=== PATIENT | male | born 1960 | race Caucasian/White ===

== ENCOUNTER 2016-11-02 19:49 | Inpatient (IN) | payer MEDICAID, OTHER ==
[~2016-11-02] VITALS: Ht 180.3 cm; Wt 85.0 kg
[2016-11-02] MEDS ORDERED: SOD CHLORIDE 0.9% 1,000 ML IV STA (20:22)
[2016-11-02] MEDS ORDERED: morphine 4 MG/ML VIAL IV STA (20:22)
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
--- NOTE | 2016-11-02 21:25 | RADRPT ---
PROCEDURE: CT Brain without. CLINICAL INDICATION: Trauma TECHNIQUE: A CT of the brain was performed utilizing axial sections from the skull base through th e vertex without contrast. The scan was reviewed in soft tissue brain and high frequency resolution bone algorithm windows. Images were reviewed on a high-resolution PACS workstation. CTDI 44 mGy, DLP 720 mGy-cm One or more of the following dose reduction techniques were used: Automated exposure control Adjustment of the mA and/or kV according to patient size. Use of iterative reconstruction technique. COMPARISON: None available FINDINGS: There is mild sulcal and ventricular prominence. There is no acute intracranial hemorrhage, an acut e large territorial infarct, an abnormal extra-axial fluid collection, or a space-occupying intracra nial mass. There is no mass effect or midline shift. The gregory-white matter differentiation is inta ct. The posterior fossa, brainstem, and basal cisterns are unremarkable. The subcutaneous soft tissues and scalp are unremarkable. There are no acute fractures. The visual ized mastoid air cells and paranasal sinuses are clear. The bilateral globes and orbits are unremar kable. RPTAT: ZZ IMPRESSION: 1. No acute intracranial abnormality. 2. Mild cerebral atrophy. .Daniela Stone MD, Date Time Electronically viewed and signed by .Daniela Stone MD, on 11/02/2016 21:24 .T/
[2016-11-02 21:30] LABS: ABNORMAL IP MESSAGE 1; BASOPHILS % 0.4 % (0.0-2.0); EOSINOPHILS % 0.3 % (0.0-7.0); HEMATOCRIT 27.4 % (42.0-52.0); HEMOGLOBIN 7.4 g/dl (14.0-18.0); LYMPHOCYTES # 0.7 10^3/ul (0.8-2.9); LYMPHOCYTES % 9.6 % (15.0-51.0); MEAN CORPUSCULAR HEMOGLOBIN 16.2 pg (29.0-33.0); MEAN CORPUSCULAR VOLUME 59.8 fl (82.0-101.0); MONOCYTE # 0.4 10^3/ul (0.3-0.9); MONOCYTES % 5.8 % (0.0-11.0); NEUTROPHIL # 5.8 10^3/ul (1.6-7.5); NEUTROPHILS % 83.6 % (39.0-77.0); PLATELET COUNT 234 10^3/UL (140-415); POSITIVE DIFF @See below; RED BLOOD COUNT 4.58 10^6/ul (4.70-6.10); RED CELL DISTRIBUTION WIDTH 21.1 % (11.5-14.5); WHITE BLOOD COUNT 6.9 10^3/ul (4.8-10.8)
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
[2016-11-02 21:41] LABS: INR 1.13; PROTIME 14.5 Sec (12.2-14.2); PT RATIO 1.1
[2016-11-02 21:42] LABS: PARTIAL THROMBOPLASTIN TIME 30.3 Sec (25.0-35.0)
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
[2016-11-02 21:51] LABS: ALBUMIN 4.4 g/dl (3.3-4.9); BILIRUBIN,INDIRECT 0.3 mg/dl (0-1.1); BILIRUBIN,TOTAL 0.3 mg/dl (0.2-1.3); CREATININE 0.73 mg/dl (0.61-1.24); POTASSIUM 4.1 mmol/L (3.5-5.1); TOTAL PROTEIN 7.2 g/dl (6.1-8.1)
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
[2016-11-02 22:48] LABS: ADD UMIC NO; UR ASCORBIC ACID NEGATIVE (NEGATIVE); UR BILIRUBIN (Dip) NEGATIVE (NEGATIVE); UR BLOOD (Dip) NEGATIVE (NEGATIVE); UR CLARITY CLEAR (CLEAR); UR COLOR YELLOW (YELLOW); UR GLUCOSE (Dip) NEGATIVE (NEGATIVE); UR KETONES (Dip) NEGATIVE (NEGATIVE); UR LEUKOCYTE ESTERASE (Dip) NEGATIVE Leu/ul (NEGATIVE); UR NITRITE (Dip) NEGATIVE (NEGATIVE); UR SPECIFIC GRAVITY (Dip) 1.018 (1.003-1.030); UR TOTAL PROTEIN (Dip) NEGATIVE (NEGATIVE); UR UROBILINOGEN (Dip) 2+ mg/dL (NEGATIVE)
[2016-11-02 23:13] LABS: BARBITURATES Negative (NEGATIVE); BENZODIAZEPINES Negative (NEGATIVE); CANNABINOIDS Negative (NEGATIVE); COCAINE Negative (NEGATIVE); OPIATES Positive (NEGATIVE)
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
[2016-11-03] VITALS (13 sets, daily range): BP systolic 97–135; BP diastolic 52–85; PULSE 64–73; RESP 16–19; TEMP 98; Ht 180.3 cm; Wt 85.0 kg
[2016-11-03] MEDS ORDERED: ONDANSETRON 4 MG INJ IV PRN ×2 (00:30→03:00)
[2016-11-03] MEDS ORDERED: ACETAMINOPHEN 325 MG TAB PO PRN ×2 (00:30→03:00)
[2016-11-03] MEDS ORDERED: KETOROLAC 30 MG INJ IV STA (01:17)
[2016-11-03] MEDS ORDERED: OXYCODONE/ACETAMINOPHEN (10/325) TAB PO ONE (01:30)
[2016-11-03] MEDS ORDERED: morphine 4 MG/ML VIAL IV PRN (03:00)
[2016-11-03] MEDS ORDERED: MAGNESIUM HYDROXIDE 30ML CUP PO PRN (03:00)
[2016-11-03 05:43] LABS: ABNORMAL IP MESSAGE 1; BASOPHILS % 0.7 % (0.0-2.0); EOSINOPHILS # 0.1 10^3/ul (0.0-0.5); EOSINOPHILS % 1.2 % (0.0-7.0); LYMPHOCYTES # 1.3 10^3/ul (0.8-2.9); LYMPHOCYTES % 21.2 % (15.0-51.0); MEAN CORPUSCULAR HGB CONC 26.5 g/dl (32.0-37.0); MEAN CORPUSCULAR VOLUME 60.5 fl (82.0-101.0); MONOCYTE # 0.4 10^3/ul (0.3-0.9); MONOCYTES % 7.5 % (0.0-11.0); NEUTROPHIL # 4.1 10^3/ul (1.6-7.5); NEUTROPHILS % 69.2 % (39.0-77.0); PLATELET COUNT 214 10^3/UL (140-415); POSITIVE DIFF @See below; WHITE BLOOD COUNT 5.9 10^3/ul (4.8-10.8)
[2016-11-03 05:51] LABS: HEMOGLOBIN 6.9 g/dl (14.0-18.0)
[2016-11-03 06:02] LABS: IRON 12 ug/dl (35-150)
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
[2016-11-03 06:11] LABS: TOTAL IRON BINDING CAPACITY 379 ug/dl (241-421)
[2016-11-03 06:24] LABS: ALBUMIN 3.7 g/dl (3.3-4.9); ALBUMIN/GLOBULIN RATIO 1.32; BILIRUBIN,INDIRECT 0.3 mg/dl (0-1.1); BILIRUBIN,TOTAL 0.3 mg/dl (0.2-1.3); CALCIUM 9.7 mg/dl (8.4-10.2); CREATININE 0.74 mg/dl (0.61-1.24); MAGNESIUM 2.2 mg/dl (1.7-2.5); PHOSPHORUS 3.7 mg/dl (2.5-4.9); POTASSIUM 3.6 mmol/L (3.5-5.1); TOTAL PROTEIN 6.5 g/dl (6.1-8.1)
[2016-11-03] MEDS: HYDROCODONE/APAP (10/325) TAB PO PRN ×3 (06:27→18:17)
[2016-11-03] MEDS: KETOROLAC 30 MG INJ IV PRN ×2 (08:15→18:17)
[2016-11-03] MEDS ORDERED: HYDROCODONE/APAP (5/325) TAB PO PRN (10:00)
[2016-11-03] MEDS: morphine 4 MG/ML VIAL IV PRN ×2 (10:22→14:46)
[2016-11-03] MEDS: FAMOTIDINE 20 MG INJ IV SCH (10:29)
[2016-11-03] MEDS: BACLOFEN 10 MG TAB PO SCH ×3 (10:29→21:48)
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
[2016-11-03] MEDS: SOD FERRIC GLUC COMPLX 125 MG in SOD CHLORIDE 0.9% 100 ML IVPB SCH (12:32)
[2016-11-04] VITALS (11 sets, daily range): BP systolic 105–147; BP diastolic 61–78; PULSE 47–52; RESP 14–26
[2016-11-04] MEDS: morphine 4 MG/ML VIAL IV PRN ×3 (05:48→18:51)
[2016-11-04 06:09] LABS: ABNORMAL IP MESSAGE 1; BASOPHILS % 0.6 % (0.0-2.0); EOSINOPHILS # 0.2 10^3/ul (0.0-0.5); EOSINOPHILS % 3.3 % (0.0-7.0); HEMATOCRIT 32.4 % (42.0-52.0); HEMOGLOBIN 9.2 g/dl (14.0-18.0); LYMPHOCYTES # 0.7 10^3/ul (0.8-2.9); LYMPHOCYTES % 14.4 % (15.0-51.0); MEAN CORPUSCULAR HEMOGLOBIN 18.6 pg (29.0-33.0); MEAN CORPUSCULAR HGB CONC 28.4 g/dl (32.0-37.0); MEAN CORPUSCULAR VOLUME 65.5 fl (82.0-101.0); MONOCYTE # 0.3 10^3/ul (0.3-0.9); MONOCYTES % 6.6 % (0.0-11.0); NEUTROPHIL # 3.6 10^3/ul (1.6-7.5); NEUTROPHILS % 74.9 % (39.0-77.0); PLATELET COUNT 194 10^3/UL (140-415); POSITIVE DIFF @See below; RED BLOOD COUNT 4.95 10^6/ul (4.70-6.10); RED CELL DISTRIBUTION WIDTH 25.2 % (11.5-14.5); WHITE BLOOD COUNT 4.9 10^3/ul (4.8-10.8)
[2016-11-04 06:35] LABS: CALCIUM 9.3 mg/dl (8.4-10.2); CREATININE 0.75 mg/dl (0.61-1.24); POTASSIUM 4.1 mmol/L (3.5-5.1)
[2016-11-04] MEDS: BACLOFEN 10 MG TAB PO SCH ×3 (08:51→20:51)
[2016-11-04] MEDS: HYDROCODONE/APAP (10/325) TAB PO PRN (08:51)
[2016-11-04] MEDS: FAMOTIDINE 20 MG INJ IV SCH (08:51)
[2016-11-04] MEDS: SOD FERRIC GLUC COMPLX 125 MG in SOD CHLORIDE 0.9% 100 ML IVPB SCH ×2 (11:00→13:35)
[2016-11-04] MEDS: KETOROLAC 30 MG INJ IV PRN ×2 (13:40→20:58)
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
[2016-11-04] MEDS ORDERED: PROPOFOL 40 ML ONE (17:38)
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
--- NOTE | 2016-11-04 17:59 | HPN ---
Date/Time of Note Date/Time of Note DATE: 11/04/16 TIME: 17:59 Interval H&P Admission Note Pt. seen H&P reviewed: No system changes CITLALY SABA MD Nov 04, 2016 17:59
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
[2016-11-04] MEDS: PANTOPRAZOLE (EC) 40 MG TAB PO SCH (18:41)
[2016-11-04] MEDS ORDERED: LABETALOL 5 MG IV PRN (19:00)
[2016-11-04] MEDS ORDERED: ONDANSETRON 4 MG INJ IV PRN (19:00)
[2016-11-04] MEDS ORDERED: EPHEDRINE SULFATE 5 MG IV PRN (19:00)
[2016-11-04] MEDS ORDERED: ATROPINE 0.4 MG IV PRN (19:00)
[2016-11-04] MEDS: FERROUS SULFATE (EC) 325 MG TAB PO SCH (20:51)
[2016-11-05 02:18] VITALS: BP 98/55; RESP 19
[2016-11-05 05:24] LABS: ABNORMAL IP MESSAGE 1; BASOPHILS % 0.6 % (0.0-2.0); EOSINOPHILS # 0.3 10^3/ul (0.0-0.5); EOSINOPHILS % 3.9 % (0.0-7.0); HEMATOCRIT 32.8 % (42.0-52.0); HEMOGLOBIN 9.2 g/dl (14.0-18.0); LYMPHOCYTES # 0.9 10^3/ul (0.8-2.9); LYMPHOCYTES % 13.2 % (15.0-51.0); MEAN CORPUSCULAR HEMOGLOBIN 18.5 pg (29.0-33.0); MONOCYTE # 0.4 10^3/ul (0.3-0.9); MONOCYTES % 6.2 % (0.0-11.0); NEUTROPHIL # 4.9 10^3/ul (1.6-7.5); NEUTROPHILS % 75.9 % (39.0-77.0); PLATELET COUNT 218 10^3/UL (140-415); POSITIVE DIFF @See below; RED BLOOD COUNT 4.97 10^6/ul (4.70-6.10); RED CELL DISTRIBUTION WIDTH 25.9 % (11.5-14.5); WHITE BLOOD COUNT 6.4 10^3/ul (4.8-10.8)
[2016-11-05] MEDS: morphine 4 MG/ML VIAL IV PRN (05:51)
[2016-11-05] MEDS: PANTOPRAZOLE (EC) 40 MG TAB PO SCH ×2 (05:51→17:08)
[2016-11-05 06:19] LABS: CALCIUM 9.2 mg/dl (8.4-10.2); CREATININE 0.68 mg/dl (0.61-1.24)
[2016-11-05 08:15] VITALS: BP 102/61; RESP 24
[2016-11-05] MEDS: BACLOFEN 10 MG TAB PO SCH ×3 (08:34→19:46)
[2016-11-05] MEDS: FERROUS SULFATE (EC) 325 MG TAB PO SCH ×2 (08:34→19:46)
[2016-11-05] MEDS: SOD FERRIC GLUC COMPLX 125 MG in SOD CHLORIDE 0.9% 100 ML IVPB SCH (11:11)
[2016-11-05] MEDS ORDERED: SOD CHLORIDE 0.9% 100 ML ONE (15:56)
[2016-11-05] MEDS ORDERED: IOHEXOL 100 ML ONE (15:56)
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
[2016-11-05 16:57] VITALS: BP 118/70; RESP 18
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
[2016-11-05 19:25] VITALS: BP 121/59; RESP 18
[2016-11-06 02:25] VITALS: BP 108/68; RESP 20
[2016-11-06] MEDS: PANTOPRAZOLE (EC) 40 MG TAB PO SCH ×2 (04:45→18:14)
[2016-11-06 08:11] VITALS: BP 114/64; RESP 18
[2016-11-06] MEDS: BACLOFEN 10 MG TAB PO SCH ×3 (08:27→21:28)
[2016-11-06] MEDS: FERROUS SULFATE (EC) 325 MG TAB PO SCH ×2 (08:27→21:28)
[2016-11-06] MEDS ORDERED: BACL10TA PO (09:28)
[2016-11-06] MEDS ORDERED: FER325 PO (09:28)
[2016-11-06] MEDS ORDERED: PANT40TA4 PO (09:28)
--- NOTE | 2016-11-06 09:29 | PDOCDIS ---
Discharge Instructions CONDITION Patient Condition: Stable FOLLOW UP/APPOINTMENTS Follow-up Plan Follow up with the truck trailer mechanic/stomach doctor within [address] Betancourt Office Address [id number] [address] Office LINNEA ONTIVEROS MD Nov 06, 2016 09:29
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
[2016-11-06 10:26] LABS: ABNORMAL IP MESSAGE 1; BASOPHILS % 0.4 % (0.0-2.0); EOSINOPHILS # 0.1 10^3/ul (0.0-0.5); EOSINOPHILS % 1.6 % (0.0-7.0); HEMATOCRIT 36.5 % (42.0-52.0); HEMOGLOBIN 10.1 g/dl (14.0-18.0); LYMPHOCYTES % 13.4 % (15.0-51.0); MEAN CORPUSCULAR HGB CONC 27.7 g/dl (32.0-37.0); MEAN CORPUSCULAR VOLUME 65.2 fl (82.0-101.0); MONOCYTE # 0.4 10^3/ul (0.3-0.9); MONOCYTES % 4.9 % (0.0-11.0); NEUTROPHIL # 5.6 10^3/ul (1.6-7.5); NEUTROPHILS % 79.3 % (39.0-77.0); PLATELET COUNT 247 10^3/UL (140-415); POSITIVE DIFF @See below; RED CELL DISTRIBUTION WIDTH 27.9 % (11.5-14.5); WHITE BLOOD COUNT 7.1 10^3/ul (4.8-10.8)
[2016-11-06 10:56] LABS: CALCIUM 9.7 mg/dl (8.4-10.2); CREATININE 0.71 mg/dl (0.61-1.24); POTASSIUM 4.2 mmol/L (3.5-5.1)
[2016-11-06 14:09] VITALS: BP 115/67; RESP 18
--- NOTE | 2016-11-06 16:00 | PN ---
Date/Time of Note Date/Time of Note DATE: 11/06/16 TIME: 15:57 Assessment/Plan VTE Prophylaxis VTE Prophylaxis Intervention: SCD's Lines/Catheters IV Catheter Type (from Nrs): Saline Lock Assessment/Plan Assessment/Plan Assessment: * Multiple linear erosions/ulcerations in the antrum of the stomach. * Rule out H. pylori infection. Biopsies obtained * Moderate distal esophagitis. Plan * Stable for outpatient management * Case discussed with DR Betancourt Subjective 24 Hr Interval Summary Free Text/Dictation * course reviewed with RN * Patient seen and examined * no untoward events Exam/Review of Systems Vital Signs Vitals Vital Signs Date Time Temp Pulse Resp B/P Pulse Ox O2 Delivery O2 Flow Rate FiO2 11/06/16 14:09 98.1 65 18 115/67 94 11/04/16 18:30 Room Air 11/03/16 16:30 2.0 Intake and Output 11/05/16 11/05/16 11/06/16 15:00 23:00 07:00 Intake Total 110 ml 920 ml 700 ml Output Total 850 ml Balance 110 ml 920 ml -150 ml Exam Constitutional: alert, oriented Neck: non-tender, supple Respiratory: clear to auscultation Cardiovascular: nl pulses, regular rate and rhythm Gastrointestinal: soft Musculoskeletal: nl extremities to inspection Extremities: normal pulses Neurological: nl speech, nl strength Skin: nl turgor Results Result Diagram: 11/06/16 0956 11/06/16 0935 Results 24 hrs Laboratory Tests Test 11/06/16 09:35 11/06/16 09:56 Sodium Level 141 Potassium Level 4.2 Chloride Level 105 Carbon Dioxide Level 28 Anion Gap 12 Blood Urea Nitrogen 11 Creatinine 0.71 Glucose Level 119 Calcium Level 9.7 White Blood Count 7.1 Red Blood Count 5.60 Hemoglobin 10.1 L Hematocrit 36.5 L Mean Corpuscular Volume 65.2 L Mean Corpuscular Hemoglobin 18.0 L Mean Corpuscular Hemoglobin Concent 27.7 L Red Cell Distribution Width 27.9 H Platelet Count 247 Mean Platelet Volume Neutrophils % 79.3 H Lymphocytes % 13.4 L Monocytes % 4.9 Eosinophils % 1.6 Basophils % 0.4 Nucleated Red Blood Cells % 0.0 Neutrophils # 5.6 Lymphocytes # 1.0 Monocytes # 0.4 Eosinophils # 0.1 Basophils # 0.0 Nucleated Red Blood Cells # 0.0 Medications Medications Current Medications Acetaminophen (Tylenol Tab) 650 mg Q4H PRN PO PAIN AND OR ELEVATED TEMP; Start 11/03/16 at 03:00 Ondansetron HCl (Zofran Inj) 4 mg Q6H PRN IV NAUSEA AND/OR VOMITING; Start at 03:00 Acetaminophen/ Hydrocodone Bitart (Andrew (10/325)) 1 tab Q4H PRN PO PAIN Last administered on 11/04/16 08:51; Admin Dose 1 TAB; Start 11/03/16 at 03:00 Magnesium Hydroxide (Milk Of Mag) 30 ml DAILY PRN PO PRN Last administered on 20:50; Admin Dose 30 ML; Start 11/03/16 at 03:00 Morphine Sulfate (morphine) 2 mg Q4H PRN IV PAIN LEVEL 7-10 Last administered on 11/05/16 05:51; Admin Dose 2 MG; Start 11/03/16 at 11:00 Baclofen (Lioresal) 10 mg TID PO Last administered on 11/06/16 13:16; Admin Dose 10 MG; Start 11/03/16 at 10:00 Ferrous Sulfate (Ferrous Sulfate (Ec)) 325 mg BID PO Last administered on 08:27; Admin Dose 325 MG; Start 11/04/16 at 21:00 Pantoprazole (Protonix Tab) 40 mg BID@18 PO Last administered on 11/06/16 04:45; Admin Dose 40 MG; Start 11/04/16 at 18:00 JAYLIN RINALDI NP Nov 06, 2016 16:00
[2016-11-06] MEDS: HYDROCODONE/APAP (10/325) TAB PO PRN ×2 (16:22→22:47)
[2016-11-06 20:59] VITALS: BP 116/60; RESP 20
== END 2016-11-06 23:50 | disposition home or self-care (01) | DRG 556 ==
LOC: E/R 19:49 → MS1 11-03 00:28
PROVIDERS: ADMIT Internal Medicine; ATTEND Internal Medicine
PROC: 30233N1 Transfusion of Nonautologous Red Blood Cells into Peripheral Vein, Percutaneous Approach (ICD-10-PCS; principal; 2016-11-03)
PROC: 0DB78ZX Excision of Stomach, Pylorus, Via Natural or Artificial Opening Endoscopic, Diagnostic (ICD-10-PCS; 2016-11-04)
DX: M79.1 Myalgia (principal); K20.9 Esophagitis, unspecified; S40.211A Abrasion of right shoulder, initial encounter; D50.9 Iron deficiency anemia, unspecified; D64.9 Anemia, unspecified; M54.42 Lumbago with sciatica, left side; M54.41 Lumbago with sciatica, right side; M54.2 Cervicalgia; K29.50 Unspecified chronic gastritis without bleeding; V23.4XXA Motorcycle driver injured in collision with car, pick-up truck or van in traffic accident, initial encounter; Y92.410 Unspecified street and highway as the place of occurrence of the external cause; Z98.890 Other specified postprocedural states; Y93.89 Activity, other specified; Y99.8 Other external cause status; Z87.891 Personal history of nicotine dependence
CPT/HCPCS: 36415; 36430; 70450; 70498; 71010; 72125; 72128; 72131; 72170; 80048; 80053; 80076; 80306; 80307; 81003; 83540; 83735; 84100; 84260; 85025; 85610; 85730; 86850; 86900; 86901; 86920; 96374; 96375; 97116; 97161; 97167; 97530; J1885; J2270; J2916; J7030; P9016; Q9967

== ENCOUNTER 2016-12-10 13:59 | Outpatient (CLI) | payer SELFPAY ==
[~2016-12-10] VITALS: Ht 180.3 cm; Wt 75.9 kg
[~2016-12-10 13:59] MED LIST: BACL10TA PO; FER325 PO; PANT40TA4 PO
[2016-12-10 14:23] VITALS: BP 109/59; PULSE 75; RESP 16; Ht 180.3 cm; Wt 75.9 kg
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
== END 2016-12-10 17:00 | disposition home or self-care (01) ==
LOC: DCC 13:59
PROVIDERS: ATTEND Internal Medicine
DX: D64.9 Anemia, unspecified (principal); M54.2 Cervicalgia; M25.512 Pain in left shoulder; M25.511 Pain in right shoulder; M25.562 Pain in left knee; M25.561 Pain in right knee; R53.1 Weakness; V89.2XXD Person injured in unspecified motor-vehicle accident, traffic, subsequent encounter
CPT/HCPCS: G0463